=== PATIENT | female | born 1995 | race Caucasian/White ===

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

== ENCOUNTER 2018-11-23 14:39 | Emergency (ER) | payer OTHER ==
[~2018-11-23] VITALS: Ht 160 cm; Wt 65.9 kg
[~2018-11-23 14:39] MED LIST changes: +EFFEXOR XR37.5 MG/CA PO
[2018-11-23 14:45] VITALS: BP 127/72; TEMP 100.9
[2018-11-23 16:40] VITALS: PULSE 81
== END 2018-11-23 16:40 | disposition home or self-care (01) ==
LOC: COL.ER 14:39
DX: J02.9 Acute pharyngitis, unspecified (principal); F32.9 Major depressive disorder, single episode, unspecified

== ENCOUNTER 2019-06-02 23:45 | Emergency (ER) | payer OTHER ==
[~2019-06-02] VITALS: Ht 162.6 cm; Wt 70.5 kg
[2019-06-02 23:57] VITALS: TEMP 97.5
[2019-06-03 00:59] LABS: COLLECTION METHOD CLEAN CATCH
[2019-06-03 01:02] LABS: BASO # 0.1 (0.0-0.2); BASO % 0.7 % (0.0-2.0); EOS # 0.2 (0.0-0.7); EOS % 2.2 % (0-4.0); GRAN % 54.6 % (42.2-75.2); HEMATOCRIT 38.7 % (37.0-47.0); HEMOGLOBIN 13.2 g/dl (12.5-16.0); LYMPH # 3.1 (1.2-3.4); LYMPH % 33.5 % (20.0-51.0); MEAN CELL VOLUME 87 fl (80.0-100.0); MEAN CORPUSCULAR HEMOGLOBIN 30 pg (27.0-31.0); MEAN CORPUSCULAR HGB CONC 34 g/dl (33.0-37.0); MEAN PLATELET VOLUME 9.2 fl (7.4-10.4); MONO # 0.8 (0.1-0.6); MONO % 8.8 % (1.7-9.3); PLATELET COUNT 319 K/mm3 (130-400); RED BLOOD COUNT 4.43 M/mm3 (4.10-5.30); REDCELL DISTRIBUTION WIDTH-CV 11.9 % (11.5-14.5)
[2019-06-03 01:05] LABS: PH 6 (5-8); SQUAMOUS EPITHELIAL 0-2 /hpf; URINE APPEARANCE Clear; URINE BACTERIA None Seen /hpf; URINE BILIRUBIN Negative (NEGATIVE); URINE BLOOD Negative (NEGATIVE); URINE COLOR Straw; URINE GLUCOSE Negative (NEGATIVE); URINE KETONE Negative (NEGATIVE); URINE LEUKOCYTE ESTERASE Negative (NEGATIVE); URINE NITRATE Negative (NEGATIVE); URINE PROTEIN(semi-quant) Negative (NEGATIVE); URINE RBC 0-2 /hpf; URINE UROBILINOGEN Negative (NEGATIVE)
[2019-06-03 01:15] LABS: ALBUMIN 4.5 gm/dL (3.5-5.0); BILIRUBIN,TOTAL 0.6 mg/dL (0.0-1.0); CALCIUM 9.7 mg/dL (8.4-10.2); CREATININE, serum 0.62 (0.52-1.25); POTASSIUM 3.7 mmol/L (3.4-5.0); TOTAL PROTEIN 7.6 gm/dL (6.4-8.2)
[2019-06-03 01:30] LABS: PROLACTIN 26.2 ng/mL (3.0-18.6)
[2019-06-03 02:19] VITALS: BP 125/75; PULSE 75
== END 2019-06-03 02:10 | disposition home or self-care (01) ==
LOC: COL.ER 23:45
PROVIDERS: Emergency Medicine
DX: R55 Syncope and collapse (principal); Z79.84 Long term (current) use of oral hypoglycemic drugs
CPT/HCPCS: J2405; J3010; J7030

== ENCOUNTER → 2019-06-08 | Outpatient (CLI) | payer OTHER | LOC: COL.CARD 10:00 | DX: R55 Syncope and collapse (principal) ==

== ENCOUNTER 2019-07-02 21:08 | Emergency (ER) | payer OTHER ==
[~2019-07-02] VITALS: Ht 162.6 cm; Wt 70.5 kg
[2019-07-02 21:18] VITALS: BP 120/85; PULSE 77; TEMP 96.9
== END 2019-07-02 21:49 | disposition left against medical advice (07) ==
LOC: COL.ER 21:08
DX: R51 Headache (principal); M54.2 Cervicalgia; R07.89 Other chest pain; R40.2412 Glasgow coma scale score 13-15, at arrival to emergency department; V40.5XXA Car driver injured in collision with pedestrian or animal in traffic accident, initial encounter